=== PATIENT | female | born 1980 | race Caucasian/White ===

== ENCOUNTER → 2017-01-05 | Outpatient (CLI) | payer OTHER ==
--- NOTE | 2017-01-05 16:32 | KCIC ---
INDICATION: Neck pain and upper back pain for months with no known injury. TECHNIQUE: Sagittal T1, sagittal T2, sagittal STIR, axial T2, and axial T2 gradient sequences are provided. Comparison is made to radiographs from September 21, 2016. FINDINGS: There is no malalignment. There is no marrow edema. There is no worrisome marrow lesion. There is subtle T2 and STIR hyperintensity in the cord at C5-C6 without cord expansion or thinning. There is otherwise no cord signal abnormality. Cervicomedullary junction is unremarkable. Degenerative findings by individual level are as follows: C2-C3: There is no canal or foraminal compromise. C3-C4: There is no canal or foraminal compromise. C4-C5: Minimal disc bulge is noted without canal or foraminal compromise. C5-C6: There is a right paracentral disc protrusion measuring 15 mm at its base and 4 mm in height. This contacts and minimally flattens the cord on the right. Again, there is subtle associated cord hyperintensity. Midline AP diameter of the thecal sac is minimally narrowed to 10 mm. There is no foraminal compromise. C6-C7: There is a minimal disc bulge without canal or foraminal compromise. C7-T1: There is no canal or foraminal compromise. T1-T2: There is a right paracentral herniation narrowing the right lateral recess, measures 10 mm at its base in 3 mm in height. There is an associated annular fissure. T2-T3: There is a right paracentral focal protrusion without definite canal or foraminal compromise, level is only evaluated in sagittal plane. IMPRESSION: 1. Degenerative disc disease in the cervical and thoracic spine, most notably at C5-C6. 2. Subtle cord hyperintensity at C5-C6 may represent edema or myelomalacia. Electronically signed by: John Mckee MD (01/05/2017 4:29 PM) [facility]
== END | disposition home or self-care (01) ==
LOC: KCIC MRI 15:29
PROVIDERS: ATTEND Family Medicine
DX: M50.322 Other cervical disc degeneration at C5-C6 level (principal)
CPT/HCPCS: 72141

== ENCOUNTER → 2021-08-20 | Outpatient (CLI) | payer MEDICAID, OTHER ==
--- NOTE | 2021-08-20 16:04 | KCIC ---
EXAM: Lumbar spine MRI without contrast. HISTORY: Lower back pain. Right leg pain. TECHNIQUE: Multiplanar, multisequence magnetic resonance imaging of the lumbar spine was performed wi thout contrast. COMPARISON: None. FINDINGS: There is no significant listhesis. There is degenerative endplate remodeling and disc desic cation at the lower lumbar levels. There is disc space narrowing predominantly at L4-L5 and L5-S1. Th ere is no suspicious osseous lesion. The conus terminates at L1. At L1-L2 and L2-L3, there is no stenosis. At L3-L4, there is a broad-based posterior central disc protrusion superimposed on a disc bulge and e ndplate remodeling. There is mild bilateral facet arthropathy. There is mild central canal stenosis a nd narrowing of the left lateral recess with abutment the traversing left nerve roots. At L4-L5, there is a broad-based right paracentral to lateral recess disc protrusion and 8 mm inferio r extrusion. There is also a right foraminal to extra foraminal disc protrusion and osteophyte comple x. These are superimposed on a disc bulge and right lateral predominant endplate remodeling. There is moderate right foraminal stenosis with abutment of the exiting right L4 nerve root. There is mild ce ntral canal stenosis and narrowing of the right lateral recess with deviation of the traversing right nerve roots. At L5-S1, there is a broad-based left paracentral disc protrusion superimposed on a disc bulge and en dplate remodeling. There is mild bilateral foraminal stenosis with abutment of the exiting right L5 n erve root. There is minimal central canal stenosis. IMPRESSION: 1. L4-L5: Broad-based right paracentral to lateral recess disc protrusion and inferior extrusion and right foraminal to extraforaminal disc protrusion and osteophyte complex, contributing to moderate ri ght foraminal stenosis and abutment the exiting right L4 nerve root and mild central canal stenosis w ith narrowing of the right lateral recess and deviation of the traversing right nerve roots. 2. Degenerative change involving the remainder of the lumbar spine, resulting in mild central canal s tenosis and narrowing of the left lateral recess at L3-L4 and mild bilateral foraminal stenosis with abutment the exiting right L5 nerve root and minimal central canal stenosis at L5-S1. Electronically signed by: Alysia Quispe MD (08/20/2021 4:01 PM) [facility]
== END ==
LOC: KCIC MRI 13:54
PROVIDERS: ATTEND Family Medicine
DX: M47.816 Spondylosis without myelopathy or radiculopathy, lumbar region (principal); M51.27 Other intervertebral disc displacement, lumbosacral region; M48.07 Spinal stenosis, lumbosacral region; M25.78 Osteophyte, vertebrae; M48.8X6 Other specified spondylopathies, lumbar region
CPT/HCPCS: 72148